=== PATIENT | male | born 1980 | race Caucasian/White ===

== ENCOUNTER → 2020-03-12 09:54 | Outpatient (BNVA) | payer MEDICAID, SELFPAY | PROVIDERS: PCP Internal Medicine; Visit Provider Internal Medicine Gastroenterology | DX: Z76.89 Persons encountering health services in other specified circumstances (principal) ==

== ENCOUNTER → 2020-07-12 09:38 | Outpatient (BNVA) | payer MEDICAID, SELFPAY | PROVIDERS: PCP Internal Medicine; Visit Provider Internal Medicine Gastroenterology ==

== ENCOUNTER → 2020-07-18 11:01 | Outpatient (BNVA) | payer MEDICAID, SELFPAY | PROVIDERS: PCP Internal Medicine; Visit Provider Surgery Vascular Surgery | DX: I83.11 Varicose veins of right lower extremity with inflammation (principal) | CPT/HCPCS: 99202 ==

== ENCOUNTER 2020-07-30 10:01 | Outpatient (REF) | payer MEDICAID, SELFPAY ==
--- NOTE | ~2020-07-30 | US_ITS ---
EXAMINATION: RIGHT AND LEFT LOWER EXTREMITY VENOUS ULTRASOUND (REFLUX EXAM) CLINICAL INDICATION: Closed vein right lower extremity with inflammation COMPARISON: None. TECHNIQUE: Color flow triplex imaging and compression Doppler was performed to evaluate both the deep and the superficial systems bilaterally. To evaluate the superficial system, the examination was performed in the upright position. Color-flow Doppler ultrasound and compression ultrasound were utilized. In addition, maneuvers were utilized to demonstrate reflux. FINDINGS: 1. DEEP VENOUS ULTRASOUND OF THE RIGHT LOWER EXTREMITY: Respiratory variation, normal compression and augmented flow are noted in the right common femoral vein as well as the right popliteal vein and there is no evidence of deep venous thrombosis at these locations. There is no evidence of reflux in the deep system in either the common femoral vein or the popliteal vein. There is no evidence of a popliteal artery aneurysm or popliteal fossa cyst. 2. SUPERFICIAL ULTRASOUND WITH DOPPLER OF RIGHT LOWER EXTREMITY: The right great saphenous vein at the saphenofemoral junction measures 6 mm, at the midthigh 3 mm, boziz-lra-mrea 2 mm, xysqi-wwu-dfjg 2 mm, at midcalf 2 mm and at the ankle measures 2 mm. There is no reflux demonstrated in the right great saphenous vein. The right small saphenous vein measures 4 mm and shows no reflux. There are multiple bilateral varicose veins on the 3 mm in diameter. There is a 1 mm junior account executive within the mid calf without reflux. There is reflux within a varicose vein measuring less than 3 mm in diameter above the knee in the right lower extremity with reflux time of greater than 2 seconds. 3. DEEP VENOUS ULTRASOUND OF THE LEFT LOWER EXTREMITY: Respiratory variation, normal compression and augmented flow are noted in the left common femoral vein as well as the left popliteal vein and there is no evidence of deep venous thrombosis at these locations. There is no evidence of reflux in the deep system in either the common femoral vein or the popliteal vein. There is no evidence of popliteal artery aneurysm or popliteal fossa cyst. 4. SUPERFICIAL ULTRASOUND WITH DOPPLER OF LEFT LOWER EXTREMITY: Left great saphenous vein at the saphenofemoral junction measures 10 mm, at the midthigh 3 mm, cmmhk-put-lsih 3 mm, pwrar-sjl-jhcx 4 mm, at midcalf 3 mm and at the ankle measures 3 mm. There is no reflux demonstrated in the left great saphenous vein. The left small saphenous vein measures 2 mm and shows no reflux. US/US venous duplex LE BI IMPRESSION: 1. No evidence of reflux or thrombus in the common femoral veins or popliteal veins bilaterally. 2. The saphenous systems are competent bilaterally. Less than 3 mm right lower extremity above the knee varicose vein with reflux time of greater than 2 seconds. No reflux at the saphenofemoral junction.
== END 2020-07-30 10:02 | disposition home or self-care (01) ==
LOC: HO.US 10:01
PROVIDERS: PCP Internal Medicine; Visit Provider Surgery Vascular Surgery
DX: I83.893 Varicose veins of bilateral lower extremities with other complications (principal)
CPT/HCPCS: 93970

== ENCOUNTER → 2020-08-01 09:53 | Outpatient (BNVA) | payer MEDICAID, SELFPAY | PROVIDERS: PCP Internal Medicine; Visit Provider Surgery Vascular Surgery | DX: I83.11 Varicose veins of right lower extremity with inflammation (principal) | CPT/HCPCS: 99212 ==

== ENCOUNTER 2021-10-03 14:20 | Emergency (ER) | payer MEDICAID, SELFPAY ==
[2021-10-03 15:43] VITALS: BP 122/87; PULSE 65; RESP 16; TEMP 36.6; O2SAT 98; BMI 22.4
[2021-10-03] MEDS: Ondansetron ODT 4 MG TAB.RAPDIS TRANSLINGU (16:45)
[2021-10-03 16:58] LABS: MANUAL DIFF FLAG NO
[2021-10-03 16:59] LABS: Basophils Percent Auto 0.2 % (0-2); Eosinophils Absolute Auto 0.1 X10*3/uL (0.0-0.4); Eosinophils Percent Auto 0.6 % (0-4); Hematocrit 44.5 % (42.0-52.0); Hemoglobin 15.1 g/dl (14.0-18.0); Imm Gran Abs Auto 0.02 X10*3/uL (0.00-0.03); Imm Gran Pct Auto 0.2 % (0.0-0.4); Mean Corpuscular HGB Conc 33.9 g/dl (31.0-36.0); Mean Corpuscular Hemoglobin 29.4 pg (27.0-33.0); Mean Corpuscular Volume 86.6 fL (80.0-98.0); Mean Platelet Volume 8.9 fL (9.4-12.4); Monocytes Absolute Auto 0.8 X10*3/uL (0.1-1.2); Neutrophils Absolute Auto 5.7 x10*3/uL (2.0-8.3); Platelet Count 285 X10*3/uL (160-400); Red Blood Count 5.14 X10*6/uL (4.60-5.80); Red Cell Distribution Width 12.8 % (11.0-16.0); White Blood Count 8.5 X10*3/uL (4.8-10.8)
[2021-10-03 17:27] LABS: Alanine Aminotransferase 24 U/L (0-40); Alkaline Phosphatase 100 U/L (39-117); Anion Gap 16 (12-20); Aspartate Amino Transferase 21 U/L (5-37); Bilirubin Direct 0.4 mg/dL (0.0-0.5); Bilirubin Total 0.9 mg/dL (0.0-1.0); Blood Urea Nitrogen 20 mg/dL (9-16); Calcium 10.5 mg/dL (8.4-10.2); Carbon Dioxide 30 mmol/L (22-29); Chloride 98 mmol/L (96-108); Creatinine Clr Calc Pharmacy 89.8; Estimated Glomerular Filt Rate > 60; Glucose Random 99 mg/dL (60-115); Lipase 11 U/L (8-78); Potassium 5.1 mmol/L (3.3-5.1); Sodium 139 mmol/L (135-145); Total Protein 8.6 g/dL (6.5-8.0)
--- NOTE | 2021-10-03 21:40 | ED.NAVMDI ---
HPI - Nausea/Vomiting/Diarrhea General Chief complaint: Nausea/Vomiting/Diarrhea Stated complaint: nausea Time Seen by Provider: 10/03/21 21:33 Source: patient Mode of arrival: ambulatory Limitations: no limitations History of Present Illness HPI Narrative: c/o nausea/vomiting for 3 Days,denies fever and chills,he has hx of opioid use disorder on methadone. elicited complaint: nausea and vomiting Onset (ago): day(s) (3) Description of vomiting: watery Associated nausea: Yes Associated abdominal pain: No Location of pain: none Quality: cramping Exacerbating factors: none Relieving factors: none Related Data Home Medications Medication Instructions Recorded Confirmed amlodipine 10 mg tablet 10 mg PO DAILY 12/21/19 12/21/19 metoprolol tartrate 50 mg tablet 50 mg PO BID 12/21/19 12/21/19 sennosides 8.6 mg tablet (senna) 17.2 mg PO BEDTIME 12/21/19 12/21/19 methadone 10 mg tablet 10 mg PO DAILY 03/12/20 lorazepam 0.5 mg tablet 0.5 mg PO DAILY PRN 07/18/20 metoprolol tartrate 50 mg tablet 50 mg PO BID 07/18/20 (Lopressor) trazodone 50 mg tablet 50 mg PO BEDTIME PRN 07/18/20 Previous Rx's Medication Instructions Recorded metoclopramide HCl 10 mg tablet 10 mg PO Q6H PRN nausea and 10/03/21 (Reglan) vomiting #15 tabs Allergies Allergy/AdvReac Type Severity Reaction Status Date / Time No Known Allergies Allergy Verified 10/03/21 15:48 [No Known Allergies*] Review of Systems Constitutional: Constitutional: Reports no additional constitutional complaints Cardiovascular: Cardiovascular: Reports no additional cardiovascular complaints Respiratory: Respiratory: Reports no additional respiratory complaints Gastrointestinal: Gastrointestinal: Reports nausea Neurologic: Reports system reviewed and no additional complaints, except as documented PMF Past Medical History Medical History HTN (hypertension) Opioid abuse Prinzmetal angina Surgical History Hx of cardiac cath Family History Family History Father Paternal grandmother alive and well Mother Family history of high blood pressure Social History Social History Alcohol intake: never Cigarettes Per Day: 1 Advance Directives: No Advance Directives Information Provided: No Physical Exam Vital Signs: Vital Signs: Last Vital Signs Temp 97.9 F 10/03/21 15:43 Pulse 65 10/03/21 15:43 Resp 16 10/03/21 15:43 BP 122/87 10/03/21 15:43 Pulse Ox 98 10/03/21 15:43 O2 Del Method 10/03/21 15:43 BMI result Body Mass Index 22.4 Const: Other: He looks well he is not toxic-appearing, he is drinking a soda when I examined him Nutritional Appearance: average body habitus Orientation/consciousness: patient oriented x3 Limitations: no limitations HEENT: Head: Yes normal to inspection Ears: hearing grossly normal bilaterally General nose exam: Normal external nose present Face and sinus: Yes normal facial exam Mouth: Normal oral and palatal mucosa present Throat: Yes posterior oropharynx normal Neck: Neck: Yes normal visual inspection and Yes full ROM Chest: Chest palpation & inspection: normal inspection of the chest Resp: Effort & Inspection: normal respiratory effort and able to speak in complete sentences Auscultation: clear to auscultation bilaterally Cardio: Jugular venous distension: no JVD Rate: regular rate Rhythm: regular rhythm GI: Inspection: Yes normal to inspection Palpation (GI): Soft to palpation, not firm, nontender, no guarding and not rigid : General: Yes no CVA tenderness Back/Spine/Pelvis: Back: no CVA tenderness Skin: General skin exam: no rashes or lesions noted, elasticity normal and turgor normal Lesions: no lesions Rashes: no rashes Neuro: General: patient oriented x3 Course Reevaluation(s) Reevaluation #1: his labs are normal,he is drinking fluids,I think he can be d/c home with prn zofran,he has no abdominal pain ,his abdomen is soft MDM - Nausea/Vomiting/Diarrhea Lab Data Result diagrams: 10/03/21 16:51 10/03/21 16:51 Labs: Lab Results 10/03/21 10/03/21 Range/Units 16:51 16:51 WBC 8.5 (4.8-10.8) X10*3/uL RBC 5.14 (4.60-5.80) X10*6/uL Hgb 15.1 (14.0-18.0) g/dl Hct 44.5 (42.0-52.0) % MCV 86.6 (80.0-98.0) fL MCH 29.4 (27.0-33.0) pg MCHC 33.9 (31.0-36.0) g/dl RDW 12.8 (11.0-16.0) % Plt Count 285 (160-400) X10*3/uL MPV 8.9 L (9.4-12.4) fL Immature Gran % (Auto) 0.2 (0.0-0.4) % Neut % (Auto) 67.0 (45-73) % Lymph % (Auto) 23.0 (20-40) % Stanly % (Auto) 9.0 (2-11) % Eos % (Auto) 0.6 (0-4) % Baso % (Auto) 0.2 (0-2) % Lymph # (Auto) 2.0 (1.2-4.9) X10*3/uL Stanly # (Auto) 0.8 (0.1-1.2) X10*3/uL Eos # (Auto) 0.1 (0.0-0.4) X10*3/uL Baso # (Auto) 0.0 (0.0-0.2) X10*3/uL Abs Immat Gran (auto) 0.02 (0.00-0.03) X10*3/uL Absolute Neuts (auto) 5.7 (2.0-8.3) x10*3/uL Absolute Nucleated RBC 0.000 (0.0-0.012) X10*3/uL Nucleated RBC % (auto) 0.0 (0.0-0.2) /100WBC Sodium 139 (135-145) mmol/L Potassium 5.1 (3.3-5.1) mmol/L Chloride 98 (96-108) mmol/L Carbon Dioxide 30 H (22-29) mmol/L Anion Gap 16 (12-20) BUN 20 H (9-16) mg/dL Creatinine 1.18 (0.5-1.4) mg/dL Estim Creat Clear Calc 89.8 Estimated GFR > 60 Random Glucose 99 (60-115) mg/dL Calcium 10.5 H (8.4-10.2) mg/dL Total Bilirubin 0.9 (0.0-1.0) mg/dL Direct Bilirubin 0.4 (0.0-0.5) mg/dL AST 21 (5-37) U/L ALT 24 (0-40) U/L Alkaline Phosphatase 100 (39-117) U/L Total Protein 8.6 H (6.5-8.0) g/dL Albumin 5.0 (3.5-5.0) g/dL Lipase 11 (8-78) U/L Discharge Plan Discharge Clinical Impression: Vomiting Patient Disposition: Home, Self-Care Instructions: Acute Nausea and Vomiting (ED) Prescriptions: New metoclopramide HCl [Reglan] 10 mg tablet 10 mg PO Q6H PRN (Reason: nausea and vomiting) Qty: 15 0RF No Action sennosides [senna] 8.6 mg Tablet 17.2 mg PO BEDTIME amlodipine 10 mg Tablet 10 mg PO DAILY metoprolol tartrate 50 mg Tablet 50 mg PO BID methadone 10 mg tablet 10 mg PO DAILY Referrals: Kristyn Graff MD [Primary Care Provider] - 3 days Discharge Date/Time: 10/03/21 22:09
--- NOTE | 2021-10-03 22:32 | PC.NURSE ---
This RN informed by Steffany SPAULDING that pt is requesting transportation home. Steffany providing pt with a bus pass however pt became very upset as the buses aren't running until morning. Pt states he was told by [facility] that we would call him an Uber home. This RN contacting the Care Team regarding a possible Lyft home. Per the Care Team, there are not any Lyft drivers available, they have been attempting to obtain transport for other patients with no luck. Pt continues stating he is not able to call a Taxi and has no ride home. This RN explaining to pt that he is able to wait in the WR until he obtains a ride or until the buses resume transportation. Pt requesting a complaint form, this RN calling the nursing erection shop supervisor regarding pts request to make a formal complaint. Nursing erection shop supervisor planning to discuss situation with pt once she is available.
--- NOTE | 2021-10-03 22:41 | PC.NURSE ---
Security notified as pt starting yelling @ this RN and becoming aggressive. Pt shifted into the RP room to await nursing sup.
== END 2021-10-03 22:09 | disposition home or self-care (01) ==
PROVIDERS: Emergency Provider Emergency Medicine; PCP Internal Medicine
DX: R11.2 Nausea with vomiting, unspecified (principal); I10 Essential (primary) hypertension; F11.20 Opioid dependence, uncomplicated; Z79.899 Other long term (current) drug therapy; F17.210 Nicotine dependence, cigarettes, uncomplicated
CPT/HCPCS: 36415; 80048; 80076; 83690; 85025; 99281; 99283

== ENCOUNTER 2024-01-22 10:38 | Emergency (ER) | payer MEDICAID, SELFPAY ==
[2024-01-22 10:40] VITALS: BP 132/66; PULSE 79; RESP 16; TEMP 36.5; O2SAT 97; BMI 21.7
--- NOTE | 2024-01-22 11:08 | ED_ITS ---
HPI - Wound/Laceration General Chief Complaint: Wound/Laceration Stated Complaint: cut hand Time Seen by Provider: 01/22/24 10:48 Source: patient Mode of arrival: ambulatory Limitations: no limitations History of Present Illness HPI narrative: Patient is a 43-year-old male presents emergency department for evaluation of an accidental laceration over the palmar aspect of the right 5th MCP joint. Reports that he was hiking yesterday he tripped and cut the base of his 5th finger from a stick. Occurred at approximately 14:00 yesterday. Last tetanus vaccination was greater than 5 years ago. Denies any numbness or tingling. Denies pain with range of motion to the fingers. Related Data Home Medications ?Medication ?Instructions ?Recorded ?Confirmed amlodipine 10 mg tablet 10 mg PO DAILY 12/21/19 12/21/19 metoprolol tartrate 50 mg tablet 50 mg PO BID 12/21/19 12/21/19 sennosides 8.6 mg tablet (senna) 17.2 mg PO BEDTIME 12/21/19 12/21/19 methadone 10 mg tablet 10 mg PO DAILY 03/12/20 lorazepam 0.5 mg tablet 0.5 mg PO DAILY PRN 07/18/20 metoprolol tartrate 50 mg tablet 50 mg PO BID 07/18/20 (Lopressor) trazodone 50 mg tablet 50 mg PO BEDTIME PRN 07/18/20 Previous Rx's ?Medication ?Instructions ?Recorded metoclopramide HCl 10 mg tablet 10 mg PO Q6H PRN nausea and 10/03/21 (Reglan) vomiting #15 tabs Allergies Allergy/AdvReac Type Severity Reaction Status Date / Time No Known Allergies Allergy Verified 01/22/24 10:43 [No Known Allergies*] Review of Systems Review of Systems: Yes all other systems are reviewed and are negative PMFSH Past Medical History Attestation statement: The following information was validated with the patient. Source: old records reviewed Medical History Opioid abuse Prinzmetal angina HTN (hypertension) Surgical History Hx of cardiac cath Family History Family History Father Paternal grandmother alive and well Mother Family history of high blood pressure Social History Social History Alcohol intake: never Cigarettes Per Day: 1 Advance Directives: No Advance Directives Information Provided: Yes Physical Exam Vital Signs: Vital Signs: Last Vital Signs Temp 97.7 F 01/22/24 10:40 Pulse 79 01/22/24 10:40 Resp 16 01/22/24 10:40 BP 132/66 01/22/24 10:40 Pulse Ox 97 01/22/24 10:40 O2 Del Method Room Air 01/22/24 10:40 BMI result Body Mass Index 21.7 Appearance: Alert.?Oriented to person, place and time. No acute distress.?Normal affect. CVS: Heart sounds normal. Normal heart rate and rhythm.? Pulses normal.?? Respiratory: No respiratory distress.? Lung sounds clear to auscultation bilaterally?? Skin: Skin warm and dry.? Normal skin color.? 1 cm linear horizontal laceration over palmar aspect of right 5th MCP. No active bleeding Extremities: No lower extremity edema.? Full range of motion to the digits of the right hand. No obvious deformity Neuro: Moves all extremities spontaneously. Sensation intact bilaterally. Ambulates with normal steady gait. Medications Administered Discontinued Medications Generic Name Dose Route Start Last Admin Trade Name Freq PRN Reason Stop Dose Admin Diphtheria/Tetanus/Acell Pertussis 0.5 ml 01/22/24 11:12 01/22/24 11:23 Diphth,Pertus(Acell),Tet Adult 0.5 Ml Syringe IM 01/22/24 11:13 0.5 ml .ONCE ONE Administration Lidocaine HCl 5 ml 01/22/24 11:12 01/22/24 11:23 Lidocaine Hcl 1 % Mpf 5 Ml Vial SUBCUT 01/22/24 11:13 5 ml ONCE ONE Administration Medical Decision Making Medical Decision Making MDM Narrative: Patient is a 43-year-old male presents emergency department for evaluation of accidental laceration to the palmar aspect of the right 5th MCP. Horizontal laceration edges are able to be well approximated. Irrigated extensively with saline and Betadine. Repaired under aseptic technique as per procedural portion of this note. Tetanus vaccination was updated. Given duration since initial laceration, and apparent contamination on evaluation today, provided with a prophylactic course of antibiotics. Extremities neurovascularly intact distally. Full range of motion. Low suspicion for acute osseous abnormalities just fracture/dislocation. Full flexion and extension of the digit, unlikely to have laceration involving the tendon. Stable for discharge Differential Diagnosis Differential Diagnoses: The differential diagnosis associated with the presentation includes (See narrative above) External Record Review External record reviewed: Outpatient record Tests considered The following testing was considered but not selected: See narrative above, XR deferred Prescription Management I considered prescription management with: Antibiotic Procedures Laceration Laceration 1: Site: hand Side (If applicable): right Size (cm): 1 Description: linear Depth: simple, single layer Local Anesthetic: lidocaine 1% Amount of anesthesia used (mL): 2 Pre-repair: wound explored Skin layer closed with: nylon Size (cm): 5-0 Number of sutures: 3 Technique: simple, interrupted Discharge Plan Discharge Clinical Impression: Laceration of hand Qualifiers: Encounter type: initial encounter Foreign body presence: without foreign body Laterality: right Qualified Code(s): S61.411A - Laceration without foreign body of right hand, initial encounter Patient Disposition: Home, Self-Care Instructions: Laceration (ED) Additional Instructions: You may clean the area gently slowly with warm water and mild non scented soap over the next 2 days, dry the area afterwards, otherwise should remain dry until removed. Avoid prolonged soaking in water such as swimming, soaking in the bath. Sutures will need to be removed in 10-14 days, you may return back to emergency department or follow-up with your primary care doctor for removal Tetanus vaccine was updated today Return with any new or worsening symptoms or concerns such as increasing pain, redness, swelling, pus-like discharge, fevers or chills. Prescriptions: No Action sennosides [senna] 8.6 mg Tablet 17.2 mg PO BEDTIME amlodipine 10 mg Tablet 10 mg PO DAILY metoprolol tartrate 50 mg Tablet 50 mg PO BID metoclopramide HCl [Reglan] 10 mg tablet 10 mg PO Q6H PRN (Reason: nausea and vomiting) Qty: 15 0RF methadone 10 mg tablet 10 mg PO DAILY Print Language: Romansh
[2024-01-22] MEDS: Lidocaine HCl 1 % MPF 5 ML VIAL SUBCUT (11:23)
[2024-01-22] MEDS: Diphth,Pertus(ACell),Tet Adult 0.5 ML SYRINGE IM (11:23)
--- OUTSIDE RECORDS SUMMARY | 2024-01-22 11:30 | XMS_ITS | Continuity of Care Document ---
Author Organization [facility] ter Address [address] [place] [id number]- Care Team Providers Care Pottery Striper Name Role Phone Shayy Morfin MD, Kristyn Falcon Primary Care Physici an Encounter [facility] Date(s): 08/27/19 - 08/27/[address] [address]- [facility] Encounter Diagnosis Precordial chest pain(Final) - 08/27/19 Discharge Disposition: A-D/C Home Attending Physician: Lawrence Tavarez MD Admitting Physician: Lawrence Tavarez MD Referring Physician: Not on Staff, Referring MD Allergies, Adverse Reactions, Alerts Substance Reaction Severity Status NKA Active Medications Lopressor 50 mg oral tablet 50 mg, 1, tablet, By Mouth, 2 times a day, Refills 0, Maintenance, 08/19/19 8:20:00 EDT Start Date: 08/19/19 Status: Ordered LORazepam 0.5 mg oral tablet 1 tablet = 0.5 mg, By Mouth, 3 times a day, PRN for anxiety, # 10 tablet, 0 Refills, Maintenance, 08/19/19 14:16:00 EDT, Tablet, [id number], 73.4, kg, 08/19/19 13:34:00 EDT, Dry Weight Start Date: 08/19/19 Status: Ordered Omeprazole By Mouth, Daily, 0 Refills, Maintenance, 08/19/19 8:19:00 EDT Start Date: 08/19/19 Status: Ordered Suboxone 8 mg-2 mg sublingual film Sublingual, Daily, 0 Refills, Maintenance, 08/19/19 8:19:00 EDT Start Date: 08/19/19 Status: Ordered Trulance = 3 mg, By Mouth, Daily, 0 Refills, Maintenance, 08/19/19 8:20:00 EDT Start Date: 08/19/19 Status: Ordered Vital Signs Most recent to oldest [Reference Range]: 1 2 Height 183 cm (08/27/19 6:14 PM) 183 cm (08/27/19 4:00 PM) Weight 73.3 kg (08/27/19 6:14 PM) 73.3 kg (08/27/19 4:00 PM) Oxygen Saturation [94-100 %] 100 % (08/27/19 4:00 PM) Pulse Rate [55-90 bpm] 63 bpm (08/27/19 4:00 PM) Body Mass Index [18.5-24.99] 21.89 (08/27/19 4:00 PM) Blood Pressure [90-138/55-84 mm Hg] 132/ 82mm Hg (08/27/19 4:00 PM) Respiratory Rate [16-30 br/min] 18 br/mi n (08/27/19 4:00 PM) Temperature [96.8-100.4 DegF] 98.7 DegF (08/27/19 4:00 PM) Mode of Delivery (Oxygen) Room air (08/27/19 4:00 PM) Blood pressure sites Arm, right (08/27/19 4:00 PM) Temperature Route Oral (08/27/19 4:00 PM) Dry Weight 73.3 kg (08/27/19 6:14 PM) 73.3 kg (08/27/19 4:00 PM) Weight Obtained Via Standing scale (08/27/19 4:00 PM) Dry Weight Obtained Via Standing scale (08/27/19 4:00 PM) Social History Social History Type Response Smoking Status 10 or more cigarette s (1/2 pack or more)/day in last 30 days entered on: 08/19/19 Sex
--- OUTSIDE RECORDS SUMMARY | 2024-01-22 11:30 | XMS_ITS | Continuity of Care Document ---
Author Organization [facility] ter Address [address] [place] [id number]- Care Team Providers Care Upper Leather Sorter Name Role Phone Shayy Morfin MD, Kristyn Falcon Primary Care Physici an Encounter [facility] Date(s): 08/24/19 - 08/24/[address] [address]- [facility] Discharge Disposition: A-D/C Walkout Attending Physician: Not on Staff, Attending MD Admitting Physician: Not on Staff, Admitting MD Referring Physician: Not on Staff, Referring [...] 0 Refills, Maintenance, 08/19/19 14:16:00 EDT, Tablet, [id number], 73.4, kg, 08/19/19 13:34:00 EDT, Dry [...] Most recent to oldest [Reference Range]: 1 Oxygen Saturation [94-100 %] 100 % (08/24/19 7:44 PM) Pulse Rate [55-90 bpm] 66 bpm (08/24/19 7:44 PM) Blood Pressure [90-138/55-84 mm Hg] 127/ 71mm Hg (08/24/19 7:44 PM) Respiratory Rate [16-30 br/min] 18 br/mi n (08/24/19 7:44 PM) Temperature [96.8-100.4 DegF] 97.5 DegF (08/24/19 7:44 PM) Mode of Delivery (Oxygen) Room air (08/24/19 7:44 PM) Blood pressure sites Arm, left (08/24/19 7:44 PM) Temperature Route Oral (08/24/19 7:44 PM) Social History Social History Type Response Smoking Status 10 or more cigarette s (1/2 pack or more)/day in last 30 days entered on: 08/19/19 Sex
--- OUTSIDE RECORDS SUMMARY | 2024-01-22 11:30 | XMS_ITS | Continuity of Care Document ---
Author Organization [facility] ter Address [address] [place] [id number]- Care Team Providers Care Production Planning Manager Name Role Phone Shayy Morfin MD, Kristyn Falcon Primary Care Physici an Encounter [facility] Date(s): 09/13/19 - 10/29/[address] [address]- [facility] Attending Physician: Dereje Avalos DO Admitting Physician: Dereje Avalos DO Referring Physician: Dereje Avalos DO Allergies, Adverse Reactions, Alerts Substance Reaction Severity Status NKA Active Medications amLODIPine 10 mg oral tablet 10 mg, 1, tablet, By Mouth, Daily, # 90 tablet, Refills 0, Maintenance, 09/16/19 17:51:00 EDT Start Date: 09/16/19 Status: Ordered aspirin 81 mg oral delayed release tablet 81 mg, By Mouth, Daily, Refills 0, Maintenance, 09/19/19 9:19:00 EDT Start Date: 09/19/19 Status: Ordered Lopressor 50 mg oral tablet 50 mg, 1, tablet, By Mouth, 2 times a day, Refills 0, Maintenance, 08/19/19 8:20:00 EDT Start Date: 08/19/19 Status: Ordered Suboxone 8 mg-2 mg sublingual film Sublingual, Daily, 0 Refills, Maintenance, 08/19/19 8:19:00 EDT Start Date: 08/19/19 Status: Ordered Social History Social History Type Response Smoking Status 10 or more cigarette s (1/2 pack or more)/day in last 30 days entered on: 08/19/19 Sex
--- OUTSIDE RECORDS SUMMARY | 2024-01-22 11:30 | XMS_ITS | Continuity of Care Document ---
Author Organization [facility] ter Address [address] [place] [id number]- Care Team Providers Care Ammunition Assembly I Laborer Name Role Phone Shayy Morfin MD, Kristyn Falcon Primary Care Physici an [place] [facility] [place] - 08/19/[address] [address]- [facility] Discharge Disposition: A-D/C Home Attending Physician: Ever Parada MD Admitting Physician: Ever Parada MD Referring Physician: Not on Staff, Referring [...] 0 Refills, Maintenance, 08/19/19 14:16:00 EDT, Tablet, [facility]/pharmacy #[id number], 73.4, kg, 08/19/19 13:34:00 EDT, Dry [...] 8:20:00 EDT Start Date: 08/19/19 Status: Ordered Results Radiology Reports * Exam Date Time Procedure Performing Provider Status 08/19/19 12:49 PM Chest 2 Views Frontal and Lat Geno AshleighClaudia; Derrell (Verified) Notes: (Chest 2 Views Frontal and Lat) Reason For Exam: Angina RESULT: Chest 2 Views Frontal and Lat PA and lateral chest dated August 19, 2019. Comparison films are from June 25, 2019. HISTORY: Angina. FINDINGS: The cardiac silhouette is within normal image for size. Hilar and mediastinal structures are unremarkable. No airspace infiltrate or pleural effusion is identified. Visualized osseous structures are within normal limits. IMPRESSION: Normal chest x-ray. Examination 18[address]. Thank you for allowing me to participate in the care of this patient. WSN: [id number] Ordering Physician: Ever Parada Dictated By: Marty Dobson MD Dictated Date/Time: 08/19/19 2:21 pm Reviewed By: Marty Dobson MD Signed By: Marty Dobson MD Signed Date/Time: 08/19/19 2:21 pm Transcribed By: MARILYN Transcribed Date/Time: 08/19/19 2:21 pm Vital Signs Most recent to oldest [Reference Range]: 1 2 3 Weight 73.4 kg (08/19/19 1:34 PM) 73.4 kg (08/19/19 11:10 AM) 73.4 kg (08/19/19 8:31 AM) Oxygen Saturation [94-100 %] 99 % (08/19/19 1:34 PM) 99 % (08/19/19 11:10 AM) 99 % (08/19/19 8:31 AM) Pulse Rate [55-90 bpm] 65 bpm (08/19/19 1:34 PM) 86 bpm (08/19/19 11:10 AM) 69 bpm (08/19/19 8:31 AM) Blood Pressure [90-138/55-84 mm Hg] 128/75mm Hg (08/19/19 1:34 PM) 139/81mm Hg *H* (08/19/19 11:10 AM) 141/84mm Hg *H* (08/19/19 8:31 AM) Respiratory Rate [16-30 br/min] 16 br/min (08/19/19 1:34 PM) 17 br/min (08/19/19 11:10 AM) 18 br/min (08/19/19 8:31 AM) Temperature [96.8-100.4 DegF] 98.2 DegF (08/19/19 1:34 PM) 97.8 DegF (08/19/19 11:10 AM) 98.7 DegF (08/19/19 8:31 AM) Mode of Delivery (Oxygen) Room air (08/19/19 1:34 PM) Room air (08/19/19 11:10 AM) Room air (08/19/19 8:31 AM) Blood pressure sites Arm, left (08/19/19 1:34 PM) Arm, right (08/19/19 11:10 AM) Arm, left (08/19/19 8:31 AM) Temperature Route Oral (08/19/19 1:34 PM) Oral (08/19/19 11:10 AM) Oral (08/19/19 8:31 AM) Dry Weight 73.4 kg (08/19/19 1:34 PM) 73.4 kg (08/19/19 11:10 AM) 73.4 kg (08/19/19 8:31 AM) Weight Obtained Via Standing scale (08/19/19 8:31 AM) Dry Weight Obtained Via Standing scale (08/19/19 8:31 AM) Social History Social History Type Response Smoking Status 10 or more cigarette s (1/2 pack or more)/day in last 30 days entered on: 08/19/19 Sex
--- OUTSIDE RECORDS SUMMARY | 2024-01-22 11:30 | XMS_ITS | Continuity of Care Document ---
Author Organization [facility] ter Address [address] [place] [address]- Care Team Providers Care Production Assistant Name Role Phone Shayy Morfin MD, Kristyn Falcon Primary Care Physici an [place] [facility] [place] - 03/04/[address] [address]- Encounter Diagnosis Prinzmetal angina(Final) - 03/03/20 Discharge Disposition: A-D/C Home [facility] Admitting Physician: Estela Bennett DO Referring Physician: Not on Staff, Referring MD Allergies, Adverse Reactions, Alerts Substance Reaction Severity Status NKA Active Immunizations Not Given Vaccine Date Status Refusal Reason pneumococcal 23-valent vaccine 03/04/20 Not Given Patient Refuses influenza virus vaccine, inactivated 03/04/20 Not Given Patient Refuses Medications amLODIPine 10 mg oral tablet 5 mg, 0.5, tablet, By Mouth, Daily, # 90 tablet, Refills 0, Maintenance, 09/16/19 17:51:00 EDT Start Date: 09/16/19 Status: Ordered aspirin 81 mg oral delayed release tablet 81 mg, By Mouth, Daily, Refills 0, Maintenance, 09/19/19 9:19:00 EDT Start Date: 09/19/19 Status: Ordered Imdur 60 mg oral tablet, extended release 1, tablet, By Mouth, Daily in AM, Refills 0, Maintenance, 03/03/20 12:30:00 EST, Partial fill upon patient request if the prescription is for a schedule II opioid drug. Start Date: 03/03/20 Status: Ordered LORazepam 0.5 mg oral tablet 1 tablet = 0.5 mg, By Mouth, 2 times a day, PRN as needed for anxiety, 0 Refills, Maintenance, 03/03/20 22:17:00 EST, Tablet, Partial fill upon patient request if the prescription is for a schedule II opioid drug. Start Date: 03/03/20 Status: Ordered Methadone = 60 mg, By Mouth, Daily, 0 Refills, Maintenance, 03/03/20 12:31:00 EST, Partial fill upon patient request if the prescription is for a schedule II opioid drug. Start Date: 03/03/20 Status: Ordered nitroglycerin 0.3 mg sublingual tablet 1 tablet = 0.3 mg, Sublingual, Every 5 minutes, PRN for chest pain, not to exceed 3 doses/15 min--if pain persists, seek medical attention, # 100 tablet, 0 Refills, Maintenance, 03/04/20 10:45:00 EST, Tablet, [facility], Partial fill upo... Start Date: 03/04/20 Status: Ordered traZODone 50 mg oral tablet 50 mg, 1, tablet, By Mouth, Daily at bedtime, # 15 tablet, Refills 0, Maintenance, 03/03/20 22:40:00 EST, Partial fill upon patient request if the prescription is for a schedule II opioid drug. Start Date: 03/03/20 Status: Ordered Results Radiology Reports * Exam Date Time Procedure Performing Provider Status 03/03/20 5:14 PM Chest Portable Abiodun Lee; Auth (V erified) Notes: (Chest Portable) Reason For Exam: Angina RESULT: Chest Portable Chest Portable Hx of Present Illness: Since May patient has had intermittent chest pain with persistent worsening of pain x 3 days. Evaluated multiple times in ED and subsequently lead ios developer. Clean cath in August.; Reason: Angina; Clinical Question(s): Other: COMPARISON: 09/16/2019 and 08/21/2019. FINDINGS: LINES AND TUBES: None. LUNGS AND PLEURA: Clear lungs. Normal pulmonary vascularity. No pleural effusion. No pneumothorax. HEART, MEDIASTINUM AND CHRISTINA: Heart is normal in size. Normal upper mediastinal and hilar contour. BONES AND SOFT TISSUES: No acute abnormality. IMPRESSION: No acute abnormality. WSN: [id number] Ordering Physician: Marian Orozco Dictated By: Alice Mcdaniel MD Dictated Date/Time: 03/03/20 5:18 pm Reviewed By: Alice Mcdaniel MD Signed By: Alice Mcdaniel MD Signed Date/Time: 03/03/20 5:18 pm Transcribed By: MARILYN Transcribed Date/Time: 03/03/20 5:17 pm Vital Signs Most recent to oldest [Reference Range]: 1 2 3 Height 183 cm (03/04/20 6:51 AM) 183 cm (03/04/20 4:27 AM) 183 cm (03/03/20 11:27 PM) Weight 77.4 kg (03/03/20 10:33 PM) 74.3 kg (03/03/20 8:30 PM) Oxygen Saturation [94-100 %] 98 % (03/04/20 6:51 AM) 100 % (03/04/20 4:27 AM) 98 % (03/03/20 11:27 PM) Pulse Rate [55-90 bpm] 70 bpm (03/04/20 6:51 AM) 63 bpm (03/04/20 4:27 AM) 64 bpm (03/03/20 11:27 PM) Body Mass Index [18.5-24.99] 23.11 (03/03/20 10:33 PM) Blood Pressure [90-138/55-84 mm Hg] 119/69mm Hg (03/04/20 6:51 AM) 119/67mm Hg (03/04/20 4:27 AM) 126/76mm Hg (03/03/20 11:27 PM) Respiratory Rate [16-30 br/min] 16 br/min (03/04/20 7:46 AM) 20 br/min (03/04/20 6:51 AM) 18 br/min (03/04/20 4:27 AM) Temperature [96.8-100.4 DegF] 98.1 DegF (03/04/20 6:51 AM) 97.8 DegF (03/04/20 4:27 AM) 98.0 DegF (03/03/20 11:27 PM) Mode of Delivery (Oxygen) Room air (03/04/20 6:51 AM) Room air (03/04/20 4:27 AM) Room air (03/03/20 11:27 PM) Blood pressure sites Arm, left (03/04/20 6:51 AM) Arm, left (03/04/20 4:27 AM) Arm, right (03/03/20 11:27 PM) Temperature Route Oral (03/04/20 6:51 AM) Oral (03/04/20 4:27 AM) Oral (03/03/20 11:27 PM) Dry Weight 77.4 kg (03/03/20 10:33 PM) Weight Obtained Via Bed scale (03/03/20 10:33 PM) Bed scale (03/03/20 8:30 PM) Social History Social History Type Response Smoking Status 10 or more cigarette s (1/2 pack or more)/day in last 30 days entered on: 08/19/19 Sex
--- OUTSIDE RECORDS SUMMARY | 2024-01-22 11:30 | XMS_ITS | Continuity of Care Document ---
Author Organization [facility] ter Address [address] [place] [address]- Care Team Providers Care Silverlight Developer Name Role Phone Shayy Morfin MD, Kristyn Faclon Primary Care Physici an [place] [facility] [place] 09/29/[address] [address]- [facility] Discharge Disposition: A-D/C Walkout Attending Physician: Not [...] 8:19:00 EDT Start Date: 08/19/19 Status: Ordered Vital Signs Most recent to oldest [Reference Range]: 1 Oxygen Saturation [94-100 %] 100 % (09/29/19 4:59 PM) Pulse Rate [55-90 bpm] 70 bpm (09/29/19 4:59 PM) Blood Pressure [90-138/55-84 mm Hg] 113/ 72mm Hg (09/29/19 4:59 PM) Respiratory Rate [16-30 br/min] 20 br/mi n (09/29/19 4:59 PM) Temperature [96.8-100.4 DegF] 99 DegF (09/29/19 4:59 PM) Mode of Delivery (Oxygen) Room air (09/29/19 4:59 PM) Blood pressure sites Arm, left (09/29/19 4:59 PM) Temperature Route Oral (09/29/19 4:59 PM) Social History Social History Type Response Smoking Status 10 or more cigarette s (1/2 pack or more)/day in last 30 days entered on: 08/19/19 Sex
--- OUTSIDE RECORDS SUMMARY | 2024-01-22 11:30 | XMS_ITS | Continuity of Care Document ---
Author Organization [facility] ter Address [address] [place] [phone]- Care Team Providers Care Media Sales Representative Name Role Phone Shayy Morfin MD, Kristyn Falcon Primary Care Physici an [place] [facility] [place] Date(s): 08/21/19 - 08/21/[address] [address]- [facility] Discharge Disposition: A-D/C Home Attending Physician: Fidel Garcia MD Admitting Physician: Fidel Garcia MD Referring Physician: Not on Staff, Referring [...] 0 Refills, Maintenance, 08/19/19 14:16:00 EDT, Tablet, [facility]/pharmacy #[id number], 73.4, kg, 08/19/19 13:34:00 [...] Exam Date Time Procedure Performing Provider Status 08/21/19 11:28 AM Chest 2 Views Frontal and Lat Alvina Diaz; Derrell (Verified) Notes: (Chest 2 Views Frontal and Lat) Reason For Exam: CHF RESULT: Chest 2 Views Frontal and Lat Chest 2 Views Frontal and Lat INDICATION: CHF; Clinical Question(s): CHF; Hx of Present Illness: Chest pain, has been having intermittent chest pressure and pain that radiated into his jaw today, , states that, smoking, anxiety and stress makes the pain worse. Denies any fevers chills, no sick contact; COMPARISON: 08/19/2019 FINDINGS: LINES AND TUBES: None. LUNGS AND PLEURA: Clear lungs. Normal pulmonary vascularity. No pleural effusion. No pneumothorax. HEART, MEDIASTINUM AND CHRISTINA: Heart is normal in size. Normal mediastinal and hilar contour. BONES AND SOFT TISSUES: No acute abnormality. IMPRESSION: No evidence of acute abnormality. WSN: [id number] Ordering Physician: Michael Allen Dictated By: Zachery Bundy MD Dictated Date/Time: 08/21/19 11:31 a Reviewed By: Zachery Bundy MD Signed By: Zachery uBndy MD Signed Date/Time: 08/21/19 11:31 am Transcribed By: MARILYN Transcribed Date/Time: 08/21/19 11:29 am Vital Signs Most recent to oldest [Reference Range]: 1 2 3 Oxygen Saturation [94-100 %] 100 % (08/21/19 3:21 PM) 97 % (08/21/19 10:35 AM) 98 % (08/21/19 10:31 AM) Pulse Rate [55-90 bpm] 79 bpm (08/21/19 3:21 PM) 73 bpm (08/21/19 10:35 AM) 84 bpm (08/21/19 10:31 AM) Blood Pressure [90-138/55-84 mm Hg] 122/68mm Hg (08/21/19 3:21 PM) 121/62mm Hg (08/21/19 10:35 AM) 137/62mm Hg (08/21/19 10:31 AM) Respiratory Rate [16-30 br/min] 16 br/min (08/21/19 3:21 PM) 20 br/min (08/21/19 10:35 AM) 16 br/min (08/21/19 10:31 AM) Temperature [96.8-100.4 DegF] 98.1 DegF (08/21/19 3:21 PM) 98 DegF (08/21/19 10:29 AM) Mode of Delivery (Oxygen) Room air (08/21/19 3:21 PM) Room air (08/21/19 10:35 AM) Room air (08/21/19 10:31 AM) Blood pressure sites Arm, left (08/21/19 3:21 PM) Arm, left (08/21/19 10:35 AM) Arm, left (08/21/19 10:29 AM) Temperature Route Oral (08/21/19 3:21 PM) Oral (08/21/19 10:29 AM) Social History Social History Type Response Smoking Status 10 or more cigarette s (1/2 pack or more)/day in last 30 days entered on: 08/19/19 Sex
--- OUTSIDE RECORDS SUMMARY | 2024-01-22 11:30 | XMS_ITS | Continuity of Care Document ---
Author Organization [facility] ter Address [address] [place] [address]- Care Team Providers Care Floatman Name Role Phone Shayy Morfin MD, Kristyn Flacon Primary Care Physici an [place] [facility] [place](s[place] 09/16/19 - 09/19/[address] [address]- [facility] Encounter Diagnosis Chest pain at rest(Final) - 09/16/19 Discharge Disposition: A-D/C Home Attending Physician: Barb Valverde MD Admitting Physician: Lloyd Loredo MD Referring Physician: Not on Staff, Referring [...] 8:19:00 EDT Start Date: 08/19/19 Status: Ordered Results Radiology Reports * Exam Date Time Procedure Performing Provider Status 09/16/19 12:43 PM Chest 2 Views Frontal and Lat Zebian , Matilde; Auth (Verified) Notes: (Chest 2 Views Frontal and Lat) Reason For Exam: Chest Pain;Other: RESULT: Chest 2 Views Frontal and Lat Chest 2 Views Frontal and Lat 09/16/2019 Reason: Other:; Chest Pain; Clinical Question(s): CHF; Hx of Present Illness: SOB, pressue in throat and upper left chest COMPARISON: 08/21/2019 FINDINGS: LINES AND TUBES: None. LUNGS AND PLEURA: Clear lungs. Normal pulmonary vascularity. No pleural effusion. No pneumothorax. HEART, MEDIASTINUM AND CHRISTINA: Heart is normal in size. Normal mediastinal and hilar contour. BONES AND SOFT TISSUES: No acute abnormality. IMPRESSION: No acute abnormality. WSN: [id number] Ordering Physician: Rema Simental Dictated By: Claribel Monet MD, I Dictated Date/Time: 09/16/19 2:05 pm Reviewed By: Claribel Monet MD, I Signed By: Claribel Monet MD, I Signed Date/Time: 09/16/19 2:05 pm Transcribed By: MARILYN Transcribed Date/Time: 09/16/19 2:04 pm Vital Signs Most recent to oldest [Reference Range]: 1 2 3 Height 180 cm (09/19/19 11:11 AM) 180 cm (09/19/19 8:35 AM) 180 cm (09/19/19 4:06 AM) Weight 74 kg (09/16/19 5:20 PM) 72.6 kg (09/16/19 4:46 PM) 74 kg (09/16/19 2:51 PM) Oxygen Saturation [94-100 %] 100 % (09/19/19 11:11 AM) 100 % (09/19/19 8:35 AM) 100 % (09/19/19 4:06 AM) Pulse Rate [55-90 bpm] 65 bpm (09/19/19 11:11 AM) 88 bpm (09/19/19 10:07 AM) 56 bpm (09/19/19 8:35 AM) Body Mass Index [18.5-24.99] 22.84 (09/16/19 5:20 PM) 22.41 (09/16/19 4:46 PM) 22.84 (09/16/19 2:51 PM) Blood Pressure [90-138/55-84 mm Hg] 125/83mm Hg (09/19/19 11:11 AM) 115/78mm Hg (09/19/19 10:07 AM) 115/78mm Hg (09/19/19 10:07 AM) Respiratory Rate [16-30 br/min] 18 br/min (09/19/19 11:11 AM) 18 br/min (09/19/19 11:00 AM) 18 br/min (09/19/19 8:35 AM) Temperature [96.8-100.4 DegF] 98.4 DegF (09/19/19 11:11 AM) 98.3 DegF (09/19/19 8:35 AM) 97.3 DegF (09/19/19 4:06 AM) Mode of Delivery (Oxygen) Room air (09/19/19 11:11 AM) Room air (09/19/19 8:35 AM) Room air (09/19/19 4:06 AM) Blood pressure sites Arm, right (09/19/19 11:11 AM) Arm, left (09/19/19 8:35 AM) Arm, left (09/19/19 4:06 AM) Temperature Route Oral (09/19/19 11:11 AM) Oral (09/19/19 8:35 AM) Oral (09/19/19 4:06 AM) Dry Weight 74 kg (09/16/19 5:20 PM) 74 kg (09/16/19 2:51 PM) 74 kg (09/16/19 11:03 AM) Social History Social History Type Response Smoking Status 10 or more cigarette s (1/2 pack or more)/day in last 30 days entered on: 08/19/19 Sex
--- OUTSIDE RECORDS SUMMARY | 2024-01-22 11:30 | XMS_ITS | Continuity of Care Document ---
Author Organization [facility] ter Address [address] [place] [address]- Care Team Providers Care Fuel Cell Binder Name Role Phone Not on Staff, PCP Primary Care Physician Unavail able Encounter [facility] Date(s): 06/25/19 - 06/25/[address] [address]- [facility] Encounter Diagnosis Chest pain(Final) - 06/25/19 Discharge Disposition: A-D/C Home Attending Physician: Shira Parry MD Admitting Physician: Shira Parry MD Referring Physician: Not on Staff, Referring MD Allergies, Adverse Reactions, Alerts Substance Reaction Severity Status NKA Active Results Radiology Reports * Exam Date Time Procedure Performing Provider Status 06/25/19 10:44 AM Chest 2 Views Frontal and Lat Montero , Nikki; Auth (Verified) Notes: (Chest 2 Views Frontal and Lat) Reason For Exam: Angina RESULT: Chest 2 Views Frontal and Lat Chest x-ray PA and lateral. INDICATION: History of SVT status post ablation, hypertension, polysubstance abuse currently at a longterm for opiate recovery was presenting to the emergency department today with a chief complaint of chest pain and shortness of breath. COMPARISON: None. FINDINGS: LINES AND TUBES: None. LUNGS AND PLEURA: Clear lungs. Normal pulmonary vascularity. No pleural effusion. No pneumothorax. HEART, MEDIASTINUM AND CHRISTINA: Heart is normal in size. Normal mediastinal and hilar contour. BONES AND SOFT TISSUES: No acute abnormality. IMPRESSION: Negative. I have personally reviewed the images and I agree with this report. WSN: [id number] Ordering Physician: Lucy Lira Dictated By: Bienvenido Muniz MD Dictated Date/Time: 06/25/19 11:20 a Reviewed By: Zachery Lozano MD Signed By: Zachery Lozano MD Signed Date/Time: 06/25/19 11:25 am Transcribed By: MARILYN Transcribed Date/Time: 06/25/19 10:57 am Vital Signs Most recent to oldest [Reference Range]: 1 2 3 Oxygen Saturation [94-100 %] 98 % (06/25/19 1:16 PM) 96 % (06/25/19 10:26 AM) 100 % (06/25/19 10:08 AM) Pulse Rate [55-90 bpm] 78 bpm (06/25/19 1:16 PM) 74 bpm (06/25/19 10:26 AM) 98 bpm *H* (06/25/19 10:08 AM) Blood Pressure [90-138/55-84 mm Hg] 108/79mm Hg (06/25/19 1:16 PM) 135/86mm Hg (06/25/19 10:26 AM) 166/89mm Hg *H* (06/25/19 10:08 AM) Respiratory Rate [16-30 br/min] 18 br/min (06/25/19 1:16 PM) 16 br/min (06/25/19 10:26 AM) 18 br/min (06/25/19 10:08 AM) Temperature [96.8-100.4 DegF] 98.5 DegF (06/25/19 1:16 PM) 98.2 DegF (06/25/19 10:08 AM) Mode of Delivery (Oxygen) Room air (06/25/19 1:16 PM) Room air (06/25/19 10:26 AM) Room air (06/25/19 10:08 AM) Blood pressure sites Arm, right (06/25/19 1:16 PM) Arm, left (06/25/19 10:26 AM) Arm, left (06/25/19 10:08 AM) Temperature Route Oral (06/25/19 1:16 PM) Oral (06/25/19 10:08 AM)
--- NOTE | 2024-01-22 11:33 | PC.NURSE ---
wound placed in betadine soak bath at this time. Supplies at bedside for [employer]
[2024-01-22 12:01] VITALS: BP 132/66; PULSE 79; RESP 16; TEMP 36.5; O2SAT 97
== END 2024-01-22 12:02 | disposition home or self-care (01) ==
PROVIDERS: Emergency Provider Emergency Medicine Emergency Medical Services; PCP Internal Medicine
DX: S61.411A Laceration without foreign body of right hand, initial encounter (principal); W01.118A Fall on same level from slipping, tripping and stumbling with subsequent striking against other sharp object, initial encounter; I10 Essential (primary) hypertension; Y93.01 Activity, walking, marching and hiking; Y92.828 Other wilderness area as the place of occurrence of the external cause; Y99.9 Unspecified external cause status; Z23 Encounter for immunization
CPT/HCPCS: 12001; 90471; 90715; 99284; J2003

== ENCOUNTER 2024-02-04 09:34 | Emergency (ER) | payer MEDICAID, SELFPAY ==
[2024-02-04 09:35] VITALS: BP 136/87; PULSE 93; RESP 16; TEMP 36.7; O2SAT 98; BMI 21.7
--- NOTE | 2024-02-04 10:44 | ED_ITS ---
HPI - General Adult General Chief complaint: Wound/Laceration Stated complaint: remove stitches Time Seen by Provider: 02/04/24 10:24 Source: patient Mode of arrival: ambulatory Limitations: no limitations History of Present Illness ED Provider: Candido Kaminski HPI narrative: 43 yold male presents to the ED for right 5th digit suture removal. Patient denies any fever, chills, redness, pus discharge, or foul odor. Related Data Home Medications ?Medication ?Instructions ?Recorded ?Confirmed amlodipine 10 mg tablet 10 mg PO DAILY 12/21/19 12/21/19 metoprolol tartrate 50 mg tablet 50 mg PO BID 12/21/19 12/21/19 sennosides 8.6 mg tablet (senna) 17.2 mg PO BEDTIME 12/21/19 12/21/19 methadone 10 mg tablet 10 mg PO DAILY 03/12/20 lorazepam 0.5 mg tablet 0.5 mg PO DAILY PRN 07/18/20 metoprolol tartrate 50 mg tablet 50 mg PO BID 07/18/20 (Lopressor) trazodone 50 mg tablet 50 mg PO BEDTIME PRN 07/18/20 Previous Rx's ?Medication ?Instructions ?Recorded metoclopramide HCl 10 mg tablet 10 mg PO Q6H PRN nausea and 10/03/21 (Reglan) vomiting #15 tabs Allergies Allergy/AdvReac Type Severity Reaction Status Date / Time No Known Allergies Allergy Verified 02/04/24 09:37 [No Known Allergies*] Review of Systems 2 Review of Systems: Right 5th digit sutures Yes all other systems are reviewed and are negative PMF Past Medical History Medical History Opioid abuse Prinzmetal angina HTN (hypertension) Surgical History Hx of cardiac cath Family History Family History Father Paternal grandmother alive and well Mother Family history of high blood pressure Social History Social History Alcohol intake: never Cigarettes Per Day: 1 Advance Directives: No Advance Directives Information Provided: No Physical Exam ED Vital Signs: Vital Signs - 24 hr 02/04/24 09:35 02/04/24 10:59 Temperature 98.1 F 98.1 F Pulse Rate 93 93 Respiratory Rate 16 16 Blood Pressure 136/87 136/87 Pulse Oximetry 98 98 Oxygen Delivery Method Room Air Room Air BMI result Body Mass Index 21.7 Const General: cooperative, healthy appearing, comfortable, no acute distress, well developed, alert, awake and Physically active Orientation/consciousness: patient oriented x3 [facility] Head: Yes normal to inspection, Yes No palpable skull fracture present, Yes normocephalic and Yes atraumatic Eyes General: appearance normal, both eyes and all related structures Neck Neck: Yes normal visual inspection, Yes full ROM, Yes no lymphadenopathy, Yes no meningeal signs, Yes trachea midline, Yes supple, No anterior neck swelling and No tender Chest Chest palpation & inspection: normal inspection of the chest and normal palpation of entire chest wall Resp Effort & Inspection: normal respiratory effort and able to speak in complete sentences Auscultation: clear to auscultation bilaterally Cardio Jugular venous distension: no JVD Heart sounds: S1 normal heart sound present and S2 normal heart sound present GI Inspection: Yes normal to inspection Palpation (GI): not firm, nontender, no guarding and not rigid General: Yes no CVA tenderness Back/Spine/Pelvis Back: no CVA tenderness and No back tenderness Skin General skin exam: no rashes or lesions noted, elasticity normal and turgor normal Neuro General: patient oriented x3, gait normal, tone normal, moves all extremities, Normal light touch and pain sensation, no meningeal signs, no focal motor deficits, CN's II-XI intact bilaterally and normal sensation to monofilament Extrem General: Yes normal to inspection, Yes full ROM and Yes capillary refill normal Hand/finger images: 2 1. Sutured wound healing. Three sutures placed. Negative for swelling, erythema, pus discharge, foul odor, stiffness, bluish discoloration, or stiffness. Motor/neuro/vascular exam intact. Rest of extremity normal Psych Appearance: grossly normal, well kempt and not disheveled Medical Decision Making Medical Decision Making MDM Narrative: 42-year-old male presents ED for suture removal. Patient denied any distress. Wounds healing. Area cleaned with Betadine iodine and alcohol prep. Three sutures removed. Patient explained worrisome signs and informed to return to the ED immediately Differential Diagnosis Differential Diagnoses: The differential diagnosis associated with the presentation includes (Suture removal) Independent Historian Clinical information obtained from an independent historian. History obtained from or confirmed by: Other (Patient) External Record Review External record reviewed: Other (Visits) Discharge Plan Discharge Clinical Impression: Encounter for removal of sutures Patient Disposition: Home, Self-Care Instructions: Stitches Removal (ED) Additional Instructions: Return to the ED immediately for any redness, pus discharge, foul odor, stiffness, bluish discoloration, or any other concerning symptoms. Recommend follow up with primary care provider. Prescriptions: No Action sennosides [senna] 8.6 mg Tablet 17.2 mg PO BEDTIME amlodipine 10 mg Tablet 10 mg PO DAILY metoprolol tartrate 50 mg Tablet 50 mg PO BID metoclopramide HCl [Reglan] 10 mg tablet 10 mg PO Q6H PRN (Reason: nausea and vomiting) Qty: 15 0RF methadone 10 mg tablet 10 mg PO DAILY Interventions: ED Discharge Assessment Last Done: 02/04/24 10:59 Discharge Date/Time: 02/04/24 11:00 Print Language: [place]
[2024-02-04 10:59] VITALS: BP 136/87; PULSE 93; RESP 16; TEMP 36.7; O2SAT 98
== END 2024-02-04 11:00 | disposition home or self-care (01) ==
PROVIDERS: Emergency Provider Student in an Organized Health Care Education/Training Program; PCP Internal Medicine
DX: Z48.02 Encounter for removal of sutures (principal)
CPT/HCPCS: 99282

== ENCOUNTER 2024-07-14 09:04 | Outpatient (REF) | payer MEDICAID, SELFPAY ==
--- OUTSIDE RECORDS SUMMARY | 2024-07-14 09:16 | XMS_ITS | Encounter Summary ---
Author Organization [employer] Address [address] [facility] [address] [address] Care Team Providers Care Pasting Inspector Name Role Phone Kristyn Graff MD Primary Care Provide r Reason for Visit * Reason Onset Date Comments Med Refill 04/18/2024 Encounter Details Date Type Department Care Team ([facility] st Contact Info) Description 04/18/2024 Refill [facility] [address] [place], [place] [phone] Divine Bryant MD [address] [place], [place] [phone] Primary hypertension Social History Tobacco Use Types Packs/Day Years Used Date Smoking Tobacco: Never Passive Smoke Exposure: Never Smokeless Tobacco: Never Alcohol Use Standard Drinks/Week Comments Yes 0 (1 standard drink = 0.6 oz pur e alcohol) oc Depression Answer Date Recorded Patient Health Questionnaire-9 Score 0 03/20/2024 Patient Health Questionnaire-9 Score 0 03/20/2024 Last PHQ-9: Questionnaire Data Not on file 1 Housing Stability Answer Date Recorded What is your housing situation today? I have jacqueline hernandez 07/09/[address] you li ve. Do you have problems with any of the following? None of the above 07/09/2023 Food Insecurity Answer Date Recorded Within the past 12 months, y ou worried that your food would run out before you got money to buy more: Never True 07/09/2023 Within the past 12 months,th e food you bought just didn't last and you didn't have enough money to get more: Never True Transportation Answer Date Recorded In the past 12 months, has l ack of transportation kept you from medical appts, meetings, work or from getting things needed for daily living? No 07/09/2023 Utilities Answer Date Recorded In the past 12 months, has t he electric, gas, oil or water company threatened to shut off services in your home? No 07/09/2023 Depression Answer Date Recorded Patient Health Questionnaire-2 Score 0 03/20/2024 Sex and Gender Information Value Date Recorded Sex Assigned at Male 01/19/2022 10:16 AM EDT Legal Sex Male 10:16 AM EDT Gender Identity Male 01/19/2022 10:16 AM EDT Sexual Orientation Straight 01/19/2022 10 :16 AM EDT documented as of this encounter Plan of Treatment Upcoming Encounters Date Type Department Care Team (Late st Contact Info) Description 08/23/2024 10:30 AM EDT Office Visit [facility] [address] [place] [phone] Kristyn Graff MD [address] [place] [phone] documented as of this encounter Visit Diagnoses Diagnosis Primary hypertension Unspecified essential hypertension documented in this encounter Additional Health Concerns Assessment Noted Time PHQ-9 Depression Total Score: 0 03/20/20 24 9:18 AM EST documented as of this encounter Care Teams Pasting Inspector Relationship Specialty Start Date End Date Kristyn Graff MD [address] [place] [phone] PCP - General Family Medicine 12/01/17 documented as of this encounter
--- OUTSIDE RECORDS SUMMARY | 2024-07-14 09:16 | XMS_ITS | Clinical Summary ---
Author Organization [employer] Address [address] [place] [address] Care Team Providers Care Rules Examiner Name Role Phone Kristyn Graff MD Primary Care Provide r Allergies No known active allergies Medications amLODIPine (Norvasc) 10 MG tabletIndications :Primary hypertension TAKE 1 TABLET BY MOUTH EVERY DAY IN THE MORNING 90 tablet 5 Active Active Problems Problem Noted Date Diagnosed Date Encounter for preventive care 03/20/2024 Assessment & Plan (03/20/2024 11:05 AM EST): See HPI Smoker 07/19/2023 Opioid dependence 07/19/2023 Essential hypertension 07/19/2023 Assessment & Plan (03/20/2024 11:04 AM EST): I advised: - Aerobic exercise to reduce BP. Initial goal of 30 min walk 3-5x/week. Increase as tolerated. - low-sodium diet (goal: <2g/day) and heart healthy diet such as DASH to reduce BP and prevent ASCVD. - Home BP monitoring 1-2 x day with goal of <140/90. - Seek immediate medical attention for chest pain, palpitations, SOB, syncope, or sudden changes in mental status. - Do not change or discontinue current prescriptions without first consulting health care provider Anxiety 07/19/2023 Varicocele 09/08/2019 Encounters Date Type Department Care Team Description 06/12/2024 Telephone [facility] [address] [place], [place] [phone] Kristyn Graff MD August06/02/2024 Population Health Risk Score [facility] [address] [phone] Provider, Population Health Generic 04/18/2024 Refill [facility] [address] [place] [address] Divine Bryant MD Primary hypertension 04/18/2024 Refill [facility] [address] [place] [address] Divine Bryant MD Primary hypertension from Last 3 Months Immunizations Name Administration Dates Next Due Hep B, adult 08/02/2020 Influenza injectable quadriv alent IIV4 with preservative 01/14/2018 Influenza injectable quadrivalent preservative f ree 01/30/2022,12/26/2018 Tdap 01/14/2018 Social History Tobacco Use Types Packs/Day Years Used Date Smoking Tobacco: Never Passive Smoke Exposure: Never Smokeless Tobacco: Never Tobacco Cessation:Counseling Given: Not Answered Alcohol Use Standard Drinks/Week Comments Yes 0 [...] Orientation Straight 01/19/2022 10 :16 AM EDT Last Filed Vital Signs Vital Sign Reading Time Taken Comments Blood Pressure 128/84 03/20/2024 9:17 AM EST Pulse 70 03/20/2024 9:17 AM EST Temperature 35.1 ??C (95.2 ??F) 03/20/2024 9:17 AM ES T Respiratory Rate 16 03/20/2024 9:17 AM EST Oxygen Saturation 98% 03/20/2024 9:17 AM EST Inhaled Oxygen Concentration - - Weight 77.1 kg (170 lb) 03/20/2024 9:17 AM EST Height 180.3 cm (5' 11 ) 03/20/2024 9:17 AM EST Body Mass Index 23.71 03/20/2024 9:17 AM EST Plan of Treatment Upcoming Encounters Date Type Department Care Team (Late st Contact Info) Description 08/23/2024 10:30 AM EDT Office Visit [facility] [address] [place] [address] Kristyn Graff MD [address] [place] [address] Health Maintenance Due Date Last Done Comments Family Planning (PISQ) 07/07/1995 Hepatitis B Vaccines (2 of 3 - 19+ 3-dose series) 08/30/2020 08/02/2020 COVID-19 Vaccine (4 - 2023-2 5 season) 2023 01/30/2022, 06/19/2020, 05/22/2020 Influenza Vaccine (#1) 2023 , 12/26/2018, 01/14/2018 SDOH Screening 07/08/2024 07/09/2023 Alcohol/Substance Use Screening 03/20/2025 03/20/2024 Depression Screening 03/20/2025 03/20/2024, 03/20/2024 Tobacco Screening 03/20/2025 03/20/2024 Lipid Panel 05/19/2026 05/19/2021 Zoster Vaccines (1 of 2) 2030 DTaP/Tdap/Td Vaccines (3 - T d or Tdap) 01/21/2034 01/22/2024, 01/14/2018 RSV Patients and Patients Aged 60 years or older (1 - 1-dose 75+ series) 07/07/2055 HIV Screening Completed 04/06/2019 Hepatitis C Screening Completed 04/06/2019 HIB Vaccines Aged Out No longer eligi ble based on patient's age to complete this topic HPV Vaccines Aged Out No longer eligi ble based on patient's age to complete this topic Hepatitis A Vaccines Aged Out No long er eligible based on patient's age to complete this topic IPV Vaccines Aged Out No longer eligi ble based on patient's age to complete this topic Meningococcal Vaccine Aged Out No helen sylvester eligible based on patient's age to complete this topic Pneumococcal Vaccine: Pediatrics (0 to 5 Years) and At-Risk Patients (6 to 49) Years) Aged Out No longer eligible b ased on patient's age to complete this topic RSV under 20 months Aged Out No longe r eligible based on patient's age to complete this topic Rotavirus Vaccines Aged Out No longer eligible based on patient's age to complete this topic Procedures Procedure Name Priority Date/Time Associated Diagnosis Comments LIPID PANEL, STANDARD Routine 05/19/2021 9:56 AM EST [facility] HISTORICAL HEPATITIS A,B,C PROFILE Routine 04/06/2019 11:45 AM EST [facility] HISTORICAL HIV AB/AG Routine 04/06/2019 11:45 AM EST from Last 3 Months or Most Recently Relevant to Health Maintenance Results * (ABNORMAL) LIPID PANEL, STANDARD (05/19/2021 9:56 AM EST) Chol/HDLC Ratio 3.5 <5.0 (calc) [facility] Cholesterol, Total 179 <200 mg/dL [facility] HDL Cholesterol 51 > OR = 40 mg/dL [facility] LDL Cholesterol 113(H) mg/dL (calc) [facility] Comment: Reference range: <100 ?? Desirable range <100 mg/dL for primary prevention; ?? <70 mg/dL for patients with CHD or diabetic patients ?? with > or = 2 CHD risk factors. ?? LDL-C is now calculated using the Carolyn ?? calculation, which is a validated novel method providing ?? better accuracy than the Friedewald equation in the ?? estimation of LDL-C. ?? Damon AMARO et al. ALEXANDRE. 2013;310(19): 6189-7356 ?? (http://[employer]/faq/OZZ939) Non-HDL Cholesterol 128 <130 mg/dL (calc) [facility] Comment: For patients with diabetes plus 1 major ASCVD risk ?? factor, treating to a non-HDL-C goal of <100 mg/dL ?? (LDL-C of <70 mg/dL) is considered a therapeutic ?? option. Triglycerides 66 <150 mg/dL [facility] 05/19/2021 9:56 AM EST Kristyn Morfin MD LAB BLOOD ORDERABLES Final Result Performing Organization Address [facility] de Phone Number [facility] [address] [place] [address], * (ABNORMAL) HEPATITIS A,B,C PROFILE (04/06/2019 11:45 AM EST) Pathologist [facility] HEPATITIS B CORE ANTIBODY NONREACTIVE NONREACTIVE [facility] HEPATITIS B INTERPRETATION SEE NOTE [facility] Comment: Consistent with Hepatitis B immunization or recovery and immunity from Hepatitis B infection. HEPATITIS B SURFACE ANTIBODY REACTIVE NONREACTIVE [facility] Comment: ?? REACTIVE: ??> 11.99 mIU/mL HEPATITIS B SURFACE ANTIGEN NEGATIVE NEGATIVE [facility] HEPATITIS C ANTIBODY REACTIVE(AA) NONREACTIVE [facility] Comment:Presumptive evidence of antibodies to HCV. 04/06/2019 11:4 5 AM EST Cecilia Provider HISTORICAL/NON ORDERABLE LABS Final Result Performing Organization Address [facility] Co de Phone Number [facility] [address] [place] [address], * HIV AB/AG (04/06/2019 11:45 AM EST) [facility] HIV AG/AB NONREACTIVE NR [facility] Comment: HIV-1 p24 Ag and/or HIV-1/HIV-2 Ab not detected. ?? A test result that is nonreactive does not exclude the possibility of exposure to or infection with HIV-1 and/or HIV-2. Nonreactive results in this assay for individuals with prior exposure to HIV-1 and/or HIV-2 may be due to antigen and antibody levels that are below the limit of detection of this assay. ?? The [facility] HIV Ag/Ab Combo assay result and supplemental assay results should be interpreted in conjunction with the patient's clinical presentation, history and other laboratory results. ??If the results are inconsistent with clinical evidence, additional testing is suggested to confirm the result. 04/06/2019 11:4 5 AM EST us Historical Provider HISTORICAL/NON ORDERABLE LABS Final Result Performing Organization Address City/State/[facility] Co de Phone Number [facility] [address] from Last 3 Months or Most Recently Relevant to Health Maintenance [place] [place] [address] [place] [id number] Care Teams Rules Examiner Relationship Specialty Start Date End Date Kristyn Graff MD [address] [place] [address] PCP - General Family Medicine 12/01/17
--- OUTSIDE RECORDS SUMMARY | 2024-07-14 09:16 | XMS_ITS | Encounter Summary ---
Author Organization [employer] Address [address] [facility] [address] [place] [address] Care Team Providers Care Clear Coat Sprayer Name Role Phone Kristyn Graff MD Primary Care Provide r Encounter Details Date Type Department Care Team (Latest Contact Info) Description 12/23/2018 Abstract [facility] Dental, Provider, DDS Social History Tobacco Use Types Packs/Day Years Used Date Smoking Tobacco: Never Assessed Sex and Gender Information Value Date Recorded Sex Assigned at Male 01/19/2022 10:16 AM EDT Legal Sex Male 10:16 AM EDT Gender Identity Male 01/19/2022 10:16 AM EDT Sexual Orientation Straight 01/19/2022 10 :16 AM EDT documented as of this encounter Plan of Treatment Upcoming Encounters Date Type Department Care Team (Late st Contact Info) Description 08/23/2024 10:30 AM EDT Office Visit [facility] [address] [place] [address] Kristyn Graff MD [address] [place] [address] documented as of this encounter Visit Diagnoses Not on filedocumented in this encounter Care Teams Clear Coat Sprayer Relationship Specialty Start Date End Date Kristyn Graff MD [address] [place] [address] PCP - General Family Medicine 12/01/17 documented as of this encounter
--- OUTSIDE RECORDS SUMMARY | 2024-07-14 09:16 | XMS_ITS | Clinical Summary ---
Author Organization [facility] it Address [address] [place] [address] Care Team Providers Care Fitness And Wellness Coordinator Name Role Phone Unavailable Primary Care Provider Unavailabl e Social History Tobacco Use Types Packs/Day Years Used Date Smoking Tobacco: Never Assessed Sex and Gender Information Value Date Recorded Sex Assigned at Not on file Legal Sex Male 4:42 AM EST Gender Identity Not on file Sexual Orientation Not on file Plan of Treatment Health Maintenance Due Date Last Done Comments DTaP,Tdap,and Td Vaccines (1 - Tdap) 07/07/1999 Hepatitis B Vaccines (1 of 3 - 19+ 3-dose series) 07/07/1999 COVID-19 Vaccine (2023-2 5 season) 2023 Influenza Vaccine (Season Ended) 2024 HIB Vaccines Aged Out No longer eligi [...] on patient's age to complete this topic MMR Vaccines Aged Out No longer eligi ble based on patient's age to complete this topic Meningococcal ACWY Vaccine Aged Out N o longer eligible based on patient's age to complete this topic Meningococcal B Vaccine Aged Out No l onger eligible based on patient's age to complete this topic Pneumococcal Vaccine: Pediat rics (0 to 5 Years) and At-Risk Patients (6 to 64 Years) Aged Out No longer eligible b ased on patient's age to complete this topic RSV Immunization Patients Un breanne 20 months Aged Out No longer eligible b ased on patient's age to complete this topic Varicella Vaccines Aged Out No longer eligible based on patient's age to complete this topic
[2024-07-14 11:32] LABS: MANUAL DIFF FLAG NO
[2024-07-14 11:36] LABS: Basophils Percent Auto 0.2 % (0-2); Eosinophils Absolute Auto 0.1 X10*3/uL (0.0-0.4); Eosinophils Percent Auto 1.3 % (0-4); Hematocrit 39.4 % (42.0-52.0); Hemoglobin 13.3 g/dl (14.0-18.0); Imm Gran Abs Auto 0.01 X10*3/uL (0.00-0.03); Imm Gran Pct Auto 0.2 % (0.0-0.4); Lymphocytes Absolute Auto 1.1 X10*3/uL (1.2-4.9); Lymphocytes Percent Auto 22.2 % (20-40); Mean Corpuscular HGB Conc 33.8 g/dl (31.0-36.0); Mean Corpuscular Hemoglobin 29.4 pg (27.0-33.0); Mean Corpuscular Volume 87.2 fL (80.0-98.0); Mean Platelet Volume 9.6 fL (9.4-12.4); Monocytes Absolute Auto 0.4 X10*3/uL (0.1-1.2); Monocytes Percent Auto 7.4 % (2-11); Neutrophils Absolute Auto 3.3 x10*3/uL (2.0-8.3); Neutrophils Percent Auto 68.7 % (45-73); Platelet Count 262 X10*3/uL (160-400); Red Blood Count 4.52 X10*6/uL (4.60-5.80); Red Cell Distribution Width 13.2 % (11.0-16.0); White Blood Count 4.7 X10*3/uL (4.8-10.8)
[2024-07-14 11:41] LABS: Estimated Average Glucose 105 mg/dL; Hemoglobin A1C 120.0641 umol/L; Hemoglobin A1c % 5.3 % (<6.0); Total Hemoglobin (HGBA1C) 3457.5585 umol/L
[2024-07-14 12:09] LABS: Alanine Aminotransferase 43 U/L (0-40); Albumin Level 4.3 g/dL (3.5-5.0); Alkaline Phosphatase 67 U/L (39-117); Anion Gap 9 (12-20); Aspartate Amino Transferase 34 U/L (5-37); Bilirubin Total 0.4 mg/dL (0.0-1.0); Blood Urea Nitrogen 17 mg/dL (9-16); Calcium 9.7 mg/dL (8.4-10.2); Carbon Dioxide 28 mmol/L (22-29); Chloride 104 mmol/L (96-108); Cholesterol 160 mg/dL (<200); Estimated Glomerular Filt Rate > 60; Glucose Random 115 mg/dL (60-115); HDL Cholesterol 45 mg/dL (>40); LDL Cholesterol Calculated 101 mg/dL (<100); Potassium 4.2 mmol/L (3.3-5.1); Sodium 137 mmol/L (135-145); Total Protein 7.5 g/dL (6.5-8.0); Triglycerides 72 mg/dL (<150)
[2024-07-14 12:20] LABS: HIV AB/AG Nonreactive (Nonreactive); HIV Num 1 0.07 S/CO (0.00-0.99); ~HepC Num1 15.14 S/CO (0.00-0.79); ~Hepatitis C Antibody Reactive (Nonreactive)
[2024-07-14 12:30] LABS: TSH reflex Free T4 1.43 uIU/mL (0.32-4.0); Vitamin D 25-OH Total 58.7 ng/mL (>30)
[2024-07-18 17:39] LABS: HCV Log PCR <1.18 NOT DETECTED Log IU/mL (NOT DETECTED); HepC Viral Load <15 NOT DETECTED IU/mL (NOT DETECTED)
== END 2024-07-14 09:05 | disposition home or self-care (01) ==
LOC: HO.HHCL 09:04
PROVIDERS: Visit Provider Internal Medicine
DX: Z00.00 Encounter for general adult medical examination without abnormal findings (principal)
CPT/HCPCS: 36415; 80053; 80061; 82306; 83036; 84443; 85025; 86803; 87389; 87522